=== PATIENT | male | born 1960 | race Caucasian/White ===

== ENCOUNTER → 2025-01-11 08:03 | Outpatient (REF) | payer OTHER, SELFPAY | LOC: HWRAD 08:03 | PROVIDERS: ATTENDING PHYSICIAN Student in an Organized Health Care Education/Training Program; FAMILY PHYSICIAN Family Medicine | DX: M25.571 Pain in right ankle and joints of right foot (principal) | CPT/HCPCS: 73700 ==

== ENCOUNTER → 2025-01-26 07:32 | Outpatient (REF) | payer OTHER, SELFPAY | LOC: MRI 3T 07:32 | PROVIDERS: ATTENDING PHYSICIAN Student in an Organized Health Care Education/Training Program; FAMILY PHYSICIAN Family Medicine | DX: M25.571 Pain in right ankle and joints of right foot (principal) | CPT/HCPCS: 73721 ==

== ENCOUNTER 2025-02-18 06:05 | Day surgery (SDC) | payer OTHER, SELFPAY ==
[2025-02-07 07:19] LABS: Hematocrit 43.5 % (39.0-52.0); Hemoglobin 15.3 g/dL (13.0-18.0); Mean Corp Hgb Conc. 35.2 g/dL (33.0-37.0); Mean Corpuscular Hgb 30.4 pg (27.0-31.0); Mean Corpuscular Volume 86.3 fL (80.0-94.0); Mean Platelet Volume 9.2 fL (7.4-10.4); Platelet Count 181 10^3/uL (130-400); Red Blood Cell Count 5.04 10^6/uL (4.70-6.10); Red Cell Dist. Width 11.4 % (11.5-14.5); White Blood Cell Count 8.3 10^3/uL (4.8-10.8)
[2025-02-07 07:50] LABS: Blood Urea Nitrogen 21 mg/dl (9-20); Calcium 9.2 mg/dl (8.4-10.2); Carbon Dioxide 26 mmol/L (22-30); Chloride 105 mmol/L (98-107); Glucose 115 mg/dl (70-99); Potassium 4.2 mmol/L (3.5-5.1); Sodium 141 mmol/L (135-145); eGFR > 60.00
[2025-02-07 12:35] VITALS: BMI 32.1
[2025-02-18] VITALS (14 sets, daily range): BP systolic 93–135; BP diastolic 56–91; BMI 32.1
[2025-02-18] MEDS: TYLENOL 1000 MG PO (06:22)
[2025-02-18] MEDS: CELEBREX 200 MG PO (06:22)
[2025-02-18] MEDS: NORMOSOL-R/PLASMALYTE-A 1000 IV (06:34)
[2025-02-18] MEDS: DILAUDID 0.5 MG IV (11:45)
== END 2025-02-18 13:45 | disposition home or self-care (01) ==
LOC: SDS 06:05
PROVIDERS: ATTENDING PHYSICIAN Student in an Organized Health Care Education/Training Program; FAMILY PHYSICIAN Family Medicine
DX: M19.071 Primary osteoarthritis, right ankle and foot (principal); M21.171 Varus deformity, not elsewhere classified, right ankle; M62.461 Contracture of muscle, right lower leg; I10 Essential (primary) hypertension; Z79.899 Other long term (current) drug therapy
CPT/HCPCS: 27702; 27687; 27659; 36415; 73610; 76000; 80048; 85027; 93005; C1713; C1776